=== PATIENT | female | born 1995 | race Caucasian/White ===

== ENCOUNTER 2018-08-02 13:17 | Emergency (ER) | payer OTHER ==
[2018-08-02] MEDS ORDERED: Ketorolac 30 MG/ML SDV IM ONE (13:32)
--- NOTE | 2018-08-02 13:34 | EDM.PDOC ---
ED HPI GENERAL MEDICAL PROBLEM - General Chief Complaint: Chest Pain Stated Complaint: TIGHTNESS IN CHEST Time Seen by Provider: 08/02/18 13:23 Source of Information: Reports: Patient History Limitations: Reports: No Limitations - History of Present Illness INITIAL COMMENTS - FREE TEXT/NARRATIVE: Woo comes into [facility] ED with an 18 hour hx of anterior L precordial chest pain, associated with some tightness in the chest wall that is aggravated with turning, movement of UEs, and cough. There is no palpitations, sweats, breast tenderness, injury hx, or rash. She has tried Tylenol for pain relief. - Related Data Allergies Allergy/AdvReac Type Severity Reaction Status Date / Time No Known Allergies Allergy Verified 08/02/18 13:32 Home Meds: Home Meds NK [No Known Home Meds] 08/02/18 [History] ED ROS GENERAL - Review of Systems Review Of Systems: See Below Constitutional: Reports: No Symptoms HEENT: Reports: No Symptoms Respiratory: Reports: No Symptoms Cardiovascular: Reports: Chest Pain Endocrine: Reports: No Symptoms GI/Abdominal: Reports: No Symptoms : Reports: No Symptoms Musculoskeletal: Reports: No Symptoms Skin: Reports: No Symptoms Neurological: Reports: No Symptoms Psychiatric: Reports: No Symptoms Hematologic/Lymphatic: Reports: No Symptoms Immunologic: Reports: No Symptoms ED EXAM, GENERAL - Physical Exam Exam: See Below Exam Limited By: Physical Impairment General Appearance: Alert, WD/WN, Anxious, Mild Distress Head: Atraumatic, Normocephalic Neck: Normal Inspection, Supple, Non-Tender, Full Range of Motion Respiratory/Chest: No Respiratory Distress, Lungs Clear, Normal Breath Sounds, No Accessory Muscle Use, Other (tenderness of L costochondral cartilages #2-5 without swelling; breast exam negative ) Cardiovascular: Normal Peripheral Pulses, Regular Rate, Rhythm, No Murmur GI/Abdominal: Normal Bowel Sounds, Soft, Non-Tender, No Organomegaly, No Distention, No Mass (Female) Exam: Deferred Rectal (Female) Exam: Deferred Back Exam: Normal Inspection Extremities: Normal Inspection Neurological: Alert, Oriented, CN II-XII Intact, Normal Gait, No Motor/Sensory Deficits Psychiatric: Normal Affect, Normal Mood Skin Exam: Warm, Dry, Intact, Normal Color, No Rash Lymphatic: No Adenopathy Course - Vital Signs Text/Narrative:: Following assessment, I adminstered Toradol 30 mg IM, and obtained 2 view chest xray: satisfactory for age. - Orders/Labs/Meds Orders: Active Orders 24 hr Category Date Time Status Chest 2V [CR] Stat Exams 08/02/18 13:32 Taken Meds: Medications Discontinued Medications Generic Name Dose Route Start Last Admin Trade Name Travis PRN Reason Stop Dose Admin Ketorolac Tromethamine 30 mg 08/02/18 13:32 08/02/18 13:37 Toradol IM 08/02/18 13:33 30 mg ONETIME ONE Administration Departure - Departure Time of Disposition: 14:13 Disposition: Home, Self-Care 01 Condition: Fair Clinical Impression: Atypical chest pain Referrals: PCP,None [Primary Care Provider] - Forms: ED Department Discharge - Problem List & Annotations (1) Atypical chest pain SNOMED Code(s): 185494665 Code(s): R07.89 - OTHER CHEST PAIN Status: Acute Annotation/Comment:: I suggested NSAIDs or Tylenol for comfort, activity as tolerated. - Problem List Review Problem List Initiated/Reviewed/Updated: Yes - My Orders Last 24 Hours: My Active Orders 08/02/18 13:32 Chest 2V [CR] Stat - Assessment/Plan Last 24 Hours: My Active Orders 08/02/18 13:32 Chest 2V [CR] Stat Plan: Follow up with PCP if needed.
--- NOTE | 2018-08-02 14:59 | CR ---
INDICATION: Left anterior chest pain, symptoms times 18 hours, no history of injury, no respiratory symptoms. CHEST: PA and lateral views of the chest were obtained 08/02/18 - no comparisons. The heart and mediastinum are unremarkable. Mild dextroconvex scoliosis of the mid thoracic spine with dextroconcave mild scoliosis at the thoracolumbar spine is noted. Overlying EKG leads are noted. An active infiltrate or effusion was not identified. Findings suggesting obstructive airway disease are noted. IMPRESSION: 1. No acute process but cannot exclude acute obstructive airway disease or chronic mild obstructive airway disease. 2. Mild scoliosis. MTDD
== END 2018-08-02 14:10 | disposition home or self-care (01) ==
LOC: FB.ED 13:17
DX: R07.89 Other chest pain (principal)
CPT/HCPCS: 71046; 96372; 99284-25; J1885